=== PATIENT | male | born 1945 | race Caucasian/White ===

== ENCOUNTER → 2017-08-05 | Outpatient (CLI) | payer MEDICARE, OTHER ==
[~2017-08-05] MED LIST: ASPIR 8181 MG PO; CEPHALEXIN 500500 M3 PO; FOLIC ACID 40400 MCG PO; IRON325 PO; LISINOPRIL10 MG PO; MAGOX 400400 MG PO; OCUVITE EYE +1 EACH PO; VITAMINC500 PO; ZOCOR20 MG PO
== END ==
LOC: M.ULTRA 08-01 08:00
DX: N50.819 Testicular pain, unspecified (principal); N50.9 Disorder of male genital organs, unspecified

== ENCOUNTER → 2020-05-10 | Outpatient (CLI) | payer MEDICARE, OTHER | LOC: M.RAD 11:24 | PROVIDERS: ATTEND Internal Medicine | DX: M25.852 Other specified joint disorders, left hip (principal) ==